=== PATIENT | male | born 1995 | race Caucasian/White ===

== ENCOUNTER 2023-01-07 22:22 | Emergency (ER) | payer BC, SELFPAY ==
--- NOTE | ~2023-01-07 | XR_ITS ---
XR shoulder LT min 2V 01/07/2023 23:03 Indication: Left shoulder pain Procedure: 2 views left shoulder Comparison: No prior studies for comparison. Findings: There is a left anterior shoulder dislocation. No underlying fracture is seen. No significa nt soft tissue abnormality. No foreign bodies. Impression: 1: Left anterior shoulder dislocation. Reviewed, dictated and finalized at location L. Impression: 1: Left anterior shoulder dislocation.
--- NOTE | ~2023-01-07 | XR_ITS ---
EXAMINATION: XR shoulder LT min 2V DATE: 01/08/2023 01:12 INDICATION: Left shoulder dislocation status post reduction TECHNIQUE: 2 views of left shoulder were obtained. COMPARISON: Left shoulder radiographs 01/07/2023 FINDINGS: Bone alignment is normal. There is an impaction fracture deformity of posterolateral adry l head (Hill-Sachs fracture deformity). Joint spaces are normal. IMPRESSION: 1. Normal alignment at glenohumeral joint. 2. Hill-Sachs fracture deformity. Reviewed, dictated and finalized at location A.
[2023-01-07 22:33] VITALS: BP 144/90; PULSE 94; RESP 15; TEMP 37.2; O2SAT 100
[2023-01-07] MEDS: MORPHINE SULFATE (*CRX) 4 MG/ML INJ IV PUSH ×2 (22:56→23:28)
[2023-01-07 23:28] VITALS: BP 136/70; PULSE 86; RESP 15; O2SAT 100
[2023-01-08 00:02] VITALS: RESP 19; TEMP 36.6; O2SAT 98
[2023-01-08 00:18] VITALS: BP 144/94; PULSE 90; RESP 15; O2SAT 100
[2023-01-08 00:39] VITALS: PULSE 110; RESP 26; TEMP 36.6; O2SAT 98
[2023-01-08 00:45] VITALS: BP 154/90; PULSE 96; RESP 10; TEMP 36.4; O2SAT 96
--- NOTE | 2023-01-08 00:53 | ED.GENADULT ---
HPI - General Adult General Chief complaint: Extremity Injury, Upper Stated complaint: shoulder injury Time Seen by Provider: 01/07/23 22:44 History of Present Illness HPI narrative: Patient a 27-year-old gentleman who presents the emergency department with chief complaint of left shoulder pain. The patient reports he was playing hockey and got hit and reports pain in his left shoulder the patient believes his shoulder is dislocated patient reports he had a little bit of tingling sensation in his left deltoid area Related Data Allergies Allergy/AdvReac Type Severity Reaction Status Date / Time No Known Allergies Allergy Verified 01/07/23 22:32 Review of Systems Review of Systems: A 10 system review of systems was completed on the patient and is negative except for what is stated in the HPI. Nursing and ancillary documentation was reviewed. Exam Narrative: GENERAL: Well-appearing, well-nourished, and in no acute distress. HEAD: Normocephalic, atraumatic. EYES: PERRLA and EOMI. ENT: Nares clear, no rhinorrhea or epistaxis. Mucous membranes moist. NECK: Supple. CHEST: Clear to auscultation. No respiratory distress. HEART: Regular rate and rhythm. No murmur heard. Normal peripheral pulses. ABDOMEN: Soft, nontender, nondistended, normal active bowel sounds. EXTREMITIES: Normal range of motion. No edema. Decreased range of motion of the left upper extremity at the shoulder there is an obvious deformity of the left shoulder. SKIN: Warm, dry, no rash. NEURO: No focal deficits. Alert and oriented x3. PSYCH: Normal mood and affect. Course Vital Signs Vital signs: Vital Signs Temperature 37.2 C 01/07/23 22:33 Pulse Rate 94 01/07/23 22:33 Respiratory Rate 15 01/07/23 22:33 Blood Pressure 144/90 H 01/07/23 22:33 Pulse Oximetry 100 01/07/23 22:33 Oxygen Delivery Room Air 01/07/23 22:33 Temperature 36.4 C 01/08/23 00:45 Pulse Rate 96 01/08/23 00:45 Respiratory Rate 10 L 01/08/23 00:45 Blood Pressure 154/90 H 01/08/23 00:45 Pulse Oximetry 96 01/08/23 00:45 Oxygen Delivery Room Air 01/08/23 00:45 Procedures Orthopedic Joint Reduction Joint #1: Orthopedic Joint Reduction Date: 01/08/23 Orthopedic Joint Reduction Time: 00:57 Time Out Performed: Yes Side: left Joint Reduction Location: shoulder Analgesia: procedural sedation Pre-Procedure Neuro Vascular Exam: abnormal (Slight decrease sensation of the deltoid) Shoulder Technique Used (if applicable): external rotation Post-reduction neuro exam: other (Improved sensation over the left deltoid) Post-reduction vascular: intact Post Reduction X-Ray Obtained: Yes Post Reduction X-Ray Results: reduced Splint Applied: Yes Patient Tolerated Procedure: well Procedural Sedation Procedural Sedation #1: Procedural Sedation Date: 01/08/23 Procedural Sedation Time: 00:35 Presedation Evaluation: GENERAL: Well-appearing, well-nourished, and in no acute distress. HEAD: Normocephalic, atraumatic. EYES: PERRLA and EOMI. ENT: Nares clear, no rhinorrhea or epistaxis. Mucous membranes moist. NECK: Supple. CHEST: Clear to auscultation. No respiratory distress. HEART: Regular rate and rhythm. No murmur heard. Normal peripheral pulses. ABDOMEN: Soft, nontender, nondistended, normal active bowel sounds. EXTREMITIES: Normal range of motion. No edema. Deformity of the left shoulder SKIN: Warm, dry, no rash. NEURO: No focal deficits. Alert and oriented x3. PSYCH: Normal mood and affect. Procedure: Closed reduction of the left shoulder dislocation Time Out: Timeout performed 34 Informed Consent Obtained: yes Equipment in Room: bag and mask, capnography, cardiac rehabilitation program director, crash cart, oxygen, pulse oximeter and suction Plan for Sedation: moderate sedation ASA Class: I Mallampati Classification
[2023-01-08 01:43] VITALS: BP 138/62; PULSE 90; RESP 15; O2SAT 100
== END 2023-01-08 01:44 | disposition home or self-care (01) ==
PROVIDERS: Emergency Provider Emergency Medicine
DX: S43.005A Unspecified dislocation of left shoulder joint, initial encounter (principal); W51.XXXA Accidental striking against or bumped into by another person, initial encounter; Y93.22 Activity, ice hockey
CPT/HCPCS: 23650; 73030; 96374; 96376; 99285; A4565; J2270